=== PATIENT | male | born 1990 | race Caucasian/White ===

== ENCOUNTER 2019-08-17 10:55 | Day surgery (SDC) | payer OTHER, BC ==
[~2019-08-17] VITALS: Ht 193 cm; Wt 111.4 kg
[~2019-08-17 10:55] MED LIST: CEPH500 PO; CRUTCH4 XX; Norco 5-325 Ta1 EACH PO; Percocet 5-3251 EACH PO; RXTRAM50 PO; Roxicodone5 MG PO; Silvadene20 GM TOP; TRIPLE ANTIBIOT28 GM TP
--- NOTE | 2019-08-17 12:52 | NUR ---
"DAY SURGERY RN | REPORT TO YAHAIRA CANNON VSS. A/O. RX SCRIPT GIVEN TO GIRLFRIEND IN PRE-OP. THIS RN AND BALTA Brito RN GOT PATIENT READY."
--- NOTE | 2019-08-17 17:30 | NUR ---
Patient up to Ambulate independently. Gait steady. Discharge instructions reviewed with patient. Patient verbalizes understanding. Copy given to patient to take home. Patient States Post-Procedure ride home has been arranged. Discharged via wheelchair to private car for ride home.
== END 2019-08-17 17:34 | disposition home or self-care (01) ==
LOC: ORSCMMR 10:55 → ORD 12:30 → ORSCMMR 17:34
PROVIDERS: Orthopaedic Surgery
PROC: 0QSK04Z Reposition Left Fibula with Internal Fixation Device, Open Approach (ICD-10-PCS; principal; 2019-08-17 12:30)
DX: S82.62XA Displaced fracture of lateral malleolus of left fibula, initial encounter for closed fracture (principal); J45.909 Unspecified asthma, uncomplicated
CPT/HCPCS: A9270-GY; C1713; J0690; J1100; J2250; J2405; J2704; J3010; J7120

== ENCOUNTER 2019-12-04 12:01 | Day surgery (SDC) | payer OTHER, BC ==
[~2019-12-04] VITALS: Ht 193 cm; Wt 113.5 kg
[2019-12-04] MEDS ORDERED: HYDROCODONE-AC1 EAC1 PO (13:30)
[2019-12-04] MEDS ORDERED: IBUP800 (13:31)
[2019-12-04] MEDS ORDERED: ALBU90OI INH (13:31)
--- NOTE | 2019-12-04 15:58 | NUR ---
12/04/19 1558 Margy Hebert PATIENT ABLE TO DRESS HIMSELF AND TRANSFER FROM BED TO RECLINER WITH VERY LITTLE ASSISTANCE. FAMILY IS BROUGHT BACK AND PATIENT IS CONVERSING AND PLEASANT. DRINKING AND EATING AT THIS TIME. PATIENT APPEARS COMFORTABLE
== END 2019-12-04 16:50 | disposition home or self-care (01) ==
LOC: ORSCSDS 12:01
PROVIDERS: Orthopaedic Surgery
PROC: 0MQP4ZZ Repair Left Knee Bursa and Ligament, Percutaneous Endoscopic Approach (ICD-10-PCS; principal; 2019-12-04 13:15)
DX: S83.512A Sprain of anterior cruciate ligament of left knee, initial encounter (principal); M22.42 Chondromalacia patellae, left knee; S83.242A Other tear of medial meniscus, current injury, left knee, initial encounter
CPT/HCPCS: A9270-GY; C1713; J0171; J0690; J1100; J1885; J2250; J2405; J2704; J2795; J3010; J7120

== ENCOUNTER 2020-09-27 22:45 | Emergency (ER) | payer BC ==
[~2020-09-27] VITALS: Ht 193 cm; Wt 117.9 kg
[~2020-09-27 22:45] MED LIST changes: +ALBU90OI INH; +HYDROCODONE-AC1 EAC1 PO; +IBUP800
[2020-09-27] MEDS ORDERED: AMOCLA875 PO (23:51)
== END 2020-09-28 00:05 | disposition home or self-care (01) ==
LOC: ER 22:45
DX: S61.211A Laceration without foreign body of left index finger without damage to nail, initial encounter (principal); F17.220 Nicotine dependence, chewing tobacco, uncomplicated; W45.8XXA Other foreign body or object entering through skin, initial encounter; Y93.G1 Activity, food preparation and clean up
CPT/HCPCS: 12001; 99282